=== PATIENT | male | born 1985 | race Caucasian/White ===

== ENCOUNTER → 2016-10-03 | Outpatient (CLI) | payer MEDICARE ==
[2016-10-03 15:13] LABS: BASO # 0.1 10*3/uL (0.0-0.1); BASO % 0.7 % (0.0-1.0); EOS # 0.1 10*3/uL (0.0-0.4); EOS % 0.7 % (1.0-4.0); HEMATOCRIT 40.6 % (42.0-52.0); HEMOGLOBIN 13.8 g/dl (14.0-18.0); LYMPH # 2.4 10*3/uL (1.3-4.4); LYMPH % 19.7 % (27.0-41.0); MEAN CELL VOLUME 91.6 fl (80.0-94.0); MEAN CORPUSCULAR HGB 31.2 pg (27.0-31.0); MONO # 0.5 10*3/uL (0.1-1.0); MONO % 4.1 % (3.0-9.0); NEUT % 74.6 % (47.0-73.0); PLATELET COUNT AUTOMATED 94 10*3/uL (130-400); RED BLOOD COUNT 4.43 10*6/uL (4.50-5.90); RED CELL DISTRI WIDTH 13.2 % (0-14.5); WHITE BLOOD COUNT 12.1 10*3/uL (4.8-10.8)
== END | disposition home or self-care (01) ==
LOC: LAB 14:46
PROVIDERS: Urology
DX: D69.6 Thrombocytopenia, unspecified (principal)

== ENCOUNTER → 2016-10-09 | Day surgery (SDC) | payer MEDICARE ==
[~2016-10-09] VITALS: Ht 182.8 cm; Wt 83.9 kg
[~2016-10-09] MED LIST: HYDROCODONE BIT1 T11 PO; MOTRIN 600 MG E4 TAB PO
--- NOTE | ~2016-10-09 | O ---
[place], [place] OPERATIVE NOTE NAME: CALVIN SMITH [facility] #: [id number] UNIT #: [id number] ROOM: DOCTOR: KRAIG SAAVEDRA MD BIRTHDATE: [birth year] DOS: 10/09/2016 PREOPERATIVE DIAGNOSIS: Elective sterilization. POSTOPERATIVE DIAGNOSIS: Elective sterilization. PROCEDURE: Bilateral vasectomy. DESCRIPTION OF PROCEDURE: After obtaining satisfactory general anesthesia, the patient was placed in lithotomy position. Genitalia was prepped and draped in sterile manner. A transverse incision in the midline was made of size approximately less than 0.5 cm. The incision deepened through skin and scrotal layers. Prior to making the incision, the vas deferens was palpated and was fixed under the finger at the site of the incision. The vas deferens was then grasped with the ring forceps and was brought out of the incision. By blunt and sharp dissection, a segment of about 1 cm was dissected off the blood supply and it was doubly clamped and cut and was sent for the histological examination. Hemostasis was excellent throughout the procedure. I tried to perform the left vasectomy through the same incision. However, the cord structures were extremely thick and the vas was thin and I was unable to grasp it and fix it and bring it under the incision. At this point, therefore, I made a decision to make a separate incision on the left side of the scrotum; however, I was still unable to properly identify the vas deferens, and therefore, I had to extend the incision and deliver the testes out of the incision, incised the tunica vaginalis and then traced the epididymis. At this point, I was able to identify the vas satisfactory. The vas deferens was then isolated by blunt and sharp dissection and a segment of about 1 cm was excised between the Hemoclips. Both incidences, the lumen of the vas was cauterized. Hemostasis was achieved by tying the bleeders with 4-0 Vicryl sutures as well as by electrocoagulating the bleeders. After satisfactory hemostasis, the vas deferens was then replaced back into the scrotum along with the testes and the testes was then replaced in its anatomical position and the wound was closed in layers with 3-0 chromic catgut. The patient tolerated the procedure very well. Dry dressing was applied. He was then transferred to recovery room in satisfactory condition. [place], [place] OPERATIVE NOTE NAME: CALVIN SMITH UNIT #: [id number] ROOM: DOCTOR: KRAIG SAAVEDRA MD BIRTHDATE: [birth year] KRAIG SAAVEDRA MD CM:OPRECORD:OPERATIVE NOTE [id number] KRAIG SAAVEDRA MD 10/09/16 1600 interface
[2016-10-09 08:00] VITALS: BP 130/78
[2016-10-09 09:00] VITALS: BP 115/71
[2016-10-09 11:20] VITALS: BP 95/65
[2016-10-09 11:35] VITALS: BP 150/92
[2016-10-09 11:49] VITALS: BP 139/88
[2016-10-09 12:09] VITALS: BP 157/66
== END | disposition home or self-care (01) ==
LOC: SDC 10-06 10:15
DX: Z30.2 Encounter for sterilization (principal)